=== PATIENT | male | born 1945 | race Caucasian/White ===

== ENCOUNTER 2019-03-01 10:23 | Outpatient (CLI) | payer OTHER, MEDICARE | END 2019-03-01 21:05 | disposition home or self-care (01) | LOC: SCA 10:23 | PROVIDERS: ATTEND Internal Medicine Cardiovascular Disease | DX: I05.1 Rheumatic mitral insufficiency (principal) | CPT/HCPCS: 93306 ==

== ENCOUNTER 2020-07-03 19:07 | Observation (INO) | payer OTHER, MEDICARE, SELFPAY ==
[~2020-07-03] VITALS: Ht 183.1 cm; Wt 94.4 kg
[2020-07-03 19:22] VITALS: BP_SYST 143
[2020-07-03] MEDS ORDERED: ONDANSETRON HCL 4 MG/2 ML VIAL BC ONE (19:30)
[2020-07-03] MEDS ORDERED: KETOROLAC TROMETHAMINE 30 MG VIAL IVP ONE (19:30)
[2020-07-03] MEDS ORDERED: KETOROLAC TROMETHAMINE 30 MG VIAL ONE (19:41)
[2020-07-03] MEDS ORDERED: ONDANSETRON HCL 4 MG/2 ML VIAL ONE (19:42)
[2020-07-03 20:06] LABS: BASOPHILS % (AUTO) 0.1 % (0.0-2.0); HEMATOCRIT 46.7 % (36-54); HEMOGLOBIN 15.3 g/dL (14.0-18.0); LYMPHOCYTES % (AUTO) 7.1 % (20.5-51.5); MEAN CORPUSCULAR HEMOGLOBIN 27 pg (27-31); MEAN CORPUSCULAR HGB CONC 33 % (32-36); MEAN CORPUSCULAR VOLUME 83 fL (79.0-98.0); MONOCYTES # (AUTO) 1.1 K/uL (0.0-1.0); MONOCYTES % (AUTO) 7.5 % (1.7-9.3); NEUTROPHILS # (AUTO) 12.1 K/uL (1.8-7.7); NEUTROPHILS % (AUTO) 85.3 % (40.0-70.0); PLATELET COUNT (AUTO) 233 K/uL (130-430); RED BLOOD CELL COUNT(AUTO) 5.66 MIL/uL (4.2-6.2); RED CELL DISTRIBUTION WIDTH 14.6 % (9.0-15.0); WHITE BLOOD COUNT (AUTO) 14.1 K/uL (4.8-10.8)
[2020-07-03] MEDS ORDERED: LEVOFLOXACIN 500 MG/D5W 100 ML IV ONE (20:15)
[2020-07-03 20:34] LABS: ANION GAP 10 (5-15); CALCIUM 9.5 mg/dL (8.4-11.0); CHLORIDE 100 mmol/L (98-107); CREATININE 1.49 mg/dL (0.55-1.30); GLUCOSE 114 mg/dL (70-99); POTASSIUM 4.5 mmol/L (3.5-5.1); SODIUM SERUM 138 mmol/L (136-145); UREA NITROGEN, BLOOD 21 mg/dL (8-21)
[2020-07-03 20:43] LABS: ALANINE AMINOTRANSFERASE 25 U/L (12-78); ALBUMIN 3.4 g/dL (3.4-4.8); ASPARTATE AMINOTRANSFERASE 22 U/L (10-37); TOTAL BILIRUBIN 1.6 mg/dL (0.0-1.0)
[2020-07-03 22:29] LABS: BILIRUBIN,URINE NEGATIVE (NEGATIVE); CLARITY/URINE CLEAR (CLEAR); COLOR,URINE YELLOW (YELLOW); GLUCOSE,URINE NEGATIVE (NEGATIVE); KETONES,URINE 2+ (NEGATIVE); LEUKOCYTE ESTERASE ,URINE NEGATIVE (NEGATIVE); NITRITE, URINE NEGATIVE (NEGATIVE); PROTEIN URINE 1+ (NEGATIVE)
[2020-07-03 22:30] LABS: BLOOD, URINE TRACE (NEGATIVE)
[2020-07-03 22:32] LABS: BACTERIA,URINE FEW /HPF (None Seen); WBC,URINE 0-3 /HPF (0-3)
[2020-07-03] MEDS ORDERED: GLU500 PO (23:55)
[2020-07-03] MEDS ORDERED: ASPI-1077 PO (23:55)
[2020-07-03] MEDS ORDERED: ALLO300T2 PO (23:55)
[2020-07-03] MEDS ORDERED: OMEG-158 PO (23:55)
[2020-07-03] MEDS ORDERED: LISI10TA5 PO (23:55)
[2020-07-04 01:15] VITALS: BP_SYST 149
[2020-07-04 08:00] VITALS: BP_SYST 130
[2020-07-04] MEDS ORDERED: NACL 0.9% 1,000 ML IV ONE (08:30)
[2020-07-04] MEDS ORDERED: NACL 0.9% 1,000 ML IV SCH (08:30)
[2020-07-04] MEDS ORDERED: ALLOPURINOL 300 MG TABLET (ZYLOPRIM) PO SCH (09:00)
[2020-07-04] MEDS ORDERED: metFORMIN HCL 500 MG TABLET PO SCH (09:00)
[2020-07-04] MEDS ORDERED: ASPIRIN 81 MG TAB.CHEW PO SCH (09:00)
[2020-07-04] MEDS ORDERED: LISINOPRIL 10 MG TABLET (PRINIVIL) PO SCH (09:00)
[2020-07-04] MEDS ORDERED: levoFLOXacin 500 MG TABLET PO SCH (10:00)
[2020-07-04 12:10] VITALS: BP_SYST 128
[2020-07-04 12:58] VITALS: BP_SYST 128
[2020-07-04] MEDS ORDERED: TAMS0.4C96 PO (13:45)
[2020-07-04] MEDS ORDERED: DOCU-144 PO (15:15)
[2020-07-04] MEDS ORDERED: SULF1TAB48 PO (15:15)
== END 2020-07-04 19:16 | disposition home or self-care (01) ==
LOC: SED 19:07 → INTOOBSV 07-04 00:38 → SMU 07-04 00:38
PROVIDERS: ADMIT Internal Medicine Cardiovascular Disease; ATTEND Internal Medicine Cardiovascular Disease
DX: N13.2 Hydronephrosis with renal and ureteral calculous obstruction (principal); Z20.822 Contact with and (suspected) exposure to COVID-19; I10 Essential (primary) hypertension; E11.41 Type 2 diabetes mellitus with diabetic mononeuropathy; N19 Unspecified kidney failure; K57.30 Diverticulosis of large intestine without perforation or abscess without bleeding; K59.00 Constipation, unspecified; Z90.49 Acquired absence of other specified parts of digestive tract; Z79.82 Long term (current) use of aspirin; Z79.84 Long term (current) use of oral hypoglycemic drugs; Z79.899 Other long term (current) drug therapy
CPT/HCPCS: 36415; 71045; 80053; 81000; 84484; 85025; 87040; 87086; 87426; 93005; 96361; 96365; 96375; 99285; G0378; J1885; J1956; J2405; U0003